=== PATIENT | female | born 1965 | race Caucasian/White ===

== ENCOUNTER 2017-06-28 10:39 | Day surgery (SDC) | payer BC, OTHER ==
[~2017-06-28] VITALS: Ht 167.6 cm; Wt 90.6 kg
[2017-06-28] VITALS (12 sets, daily range): BP systolic 95–123; BP diastolic 51–77
[2017-06-28] MEDS ORDERED: LIDOcaine 1% (10mg/ml) 2ml vial ONE (11:02)
[2017-06-28] MEDS ORDERED: normal saline 1000ml 1,000 ML IV SCH ×2 (11:15→13:45)
[2017-06-28] MEDS ORDERED: diphenhydrAMINE 25mg capsule PO PRN (11:15)
[2017-06-28] MEDS ORDERED: LORazepam 0.5 MG tablet PO PRN (11:15)
[2017-06-28] MEDS ORDERED: nitroGLYCERIN 0.4mg SUBLingual tab SL PRN ×2 (11:15→13:45)
[2017-06-28] MEDS ORDERED: ARIP5TAB4 PO (11:20)
[2017-06-28] MEDS ORDERED: NITR0.4T48 SL (11:20)
[2017-06-28] MEDS ORDERED: LEVO25TA7 PO (11:20)
[2017-06-28] MEDS ORDERED: BUPR150T13 PO (11:20)
[2017-06-28] MEDS ORDERED: TRAZ150T78 PO (11:20)
[2017-06-28] MEDS ORDERED: ANAS1TAB10 PO (11:20)
[2017-06-28] MEDS ORDERED: MET0.75G TP (11:20)
[2017-06-28] MEDS ORDERED: ASPI-611 PO (11:20)
[2017-06-28] MEDS ORDERED: MAGNESIUM PO (11:20)
[2017-06-28] MEDS ORDERED: CALCIUM PO (11:20)
[2017-06-28] MEDS ORDERED: LAMO200T2 PO (11:20)
[2017-06-28] MEDS ORDERED: BUSP15TA3 PO (11:20)
[2017-06-28] MEDS ORDERED: IOHEXOL 350 MG/ML 150 ML injection IV ONE (12:04)
[2017-06-28] MEDS ORDERED: iohexol 350 MG/ML 50ML vial IV ONE (12:04)
[2017-06-28] MEDS ORDERED: LIDOcaine 1%/PF (10mg/ml) 5ml vial ONE (12:04)
[2017-06-28] MEDS ORDERED: fentaNYL/PF 50MCG/1 ML 2ML syringe ONE (12:29)
[2017-06-28] MEDS ORDERED: midazolam 2 mg/2 ml injection ONE (12:29)
[2017-06-28] MEDS ORDERED: pneumococcal 23-VAL P-sac vacc 25 mcg/0.5ml vial IMVAC ONE (13:12)
[2017-06-28] MEDS ORDERED: HYDROcodone/acetaminophen 5mg/325mg tablet PO PRN (13:45)
[2017-06-28] MEDS ORDERED: HYDROcodone/acetaminophen 10/325mg tab PO PRN (13:45)
[2017-06-28] MEDS ORDERED: OXAZEpam 15mg capsule PO PRN (13:45)
[2017-06-28] MEDS ORDERED: ondansetron/PF 4mg/2ml inj IV PRN (13:45)
[2017-06-28] MEDS ORDERED: proCHLORperazine 10 MG/2 ml inj IV PRN (13:45)
== END 2017-06-28 18:50 | disposition home or self-care (01) ==
LOC: SSTAY O 10:39
PROVIDERS: ATTEND Internal Medicine Cardiovascular Disease
DX: I25.10 Atherosclerotic heart disease of native coronary artery without angina pectoris (principal); Z23 Encounter for immunization; Z88.8 Allergy status to other drugs, medicaments and biological substances; Z88.1 Allergy status to other antibiotic agents
CPT/HCPCS: 90732; 93458; 96372; 99152; 99153; A6257; C1769; J1644; J2001; J2250; J3010; J3490; J7030; Q0163; Q9967; A4620